=== PATIENT | female | born 1950 ===

== ENCOUNTER 2023-04-12 09:15 | Day surgery (SDC) | payer OTHER ==
[2023-04-12] MEDS ORDERED: TRAM1TAB98 PO (15:23)
[2023-04-12] MEDS ORDERED: COLACE100 MG PO (15:23)
== END 2023-04-12 21:35 | disposition home or self-care (01) ==
LOC: CIR.AMB 09:15
PROVIDERS: ATTEND Surgery
DX: R85.612 Low grade squamous intraepithelial lesion on cytologic smear of anus (LGSIL) (principal); D12.9 Benign neoplasm of anus and anal canal; K62.89 Other specified diseases of anus and rectum; A63.0 Anogenital (venereal) warts; Z88.6 Allergy status to analgesic agent; Z20.822 Contact with and (suspected) exposure to COVID-19; E11.9 Type 2 diabetes mellitus without complications